=== PATIENT | male | born 1995 | race Asian ===

== ENCOUNTER 2023-04-22 10:54 | Emergency (ER) | payer OTHER ==
[~2023-04-22] VITALS: Ht 177.8 cm; Wt 73.5 kg
[2023-04-22 12:04] LABS: RSV AMPLIFICATION NEGATIVE (NEGATIVE)
[2023-04-22] MEDS ORDERED: AMOX875T2 PO (12:31)
[2023-04-22 12:44] VITALS: BP 124/54; TEMP 98.2; O2SAT 96
== END 2023-04-22 12:36 | disposition home or self-care (01) ==
LOC: M ED 10:54
DX: J20.9 Acute bronchitis, unspecified (principal)